=== PATIENT | female | born 1985 | race Caucasian/White ===

== ENCOUNTER 2019-05-02 08:31 | Emergency (ER) | payer OTHER ==
[2019-05-02 08:56] VITALS: BP 132/84
--- NOTE | 2019-05-02 09:30 | ED ---
Skin Complaint - HPI Summary HPI Summary: 33 yr old female with the complaint of bites and itching. Onset over the past week. She has several bug bites. She has been scratching as well, and has some bruising near the itching. She has a follicle left medial thigh as well that is tender with swelling and a bruise around it. She has not had fever. She has not had drainage from the area of the left thigh. She does not know she was bitten. No bleeding from gums, nose, stool, urine. No petechia. - History of Current Complaint Chief Complaint: UCSkin Time Seen by Provider: 05/02/19 08:59 Stated Complaint: SKIN CONCERN Hx Last Menstrual Period: 04/29/19 Pain Intensity: 0 - Allergy/Home Medications Allergies/Adverse Reactions: Allergies Allergy/AdvReac Type Severity Reaction Status Date / Time poison elma extract Allergy Severe severe rash Verified 05/02/19 08:47 Home Medications: Home Medications Hydrocortisone 0.5% CM(NF) [Hydrocortisone 0.5% CREAM(NF)] 1 applic .SEE ORDER PRN 05/02/19 [History] PMH/Surg Hx/FS Hx/Imm Hx Infectious Disease History: No Infectious Disease History: Denies: Traveled Outside the [place] in Last 30 Days - Family History Known Family History: Positive: None - Social History Alcohol Use: Rare Substance Use Type: Reports: None Smoking Status (MU): Never Smoked Tobacco Review of Systems Constitutional: Negative Positive: Other - bites insect and bruising. All Other Systems Reviewed And Are Negative: Yes Physical Exam Triage Information Reviewed: Yes Vital Signs On Initial Exam: Initial Vitals Temp Pulse Resp BP Pulse Ox 98.6 F 66 18 132/84 100 05/02/19 08:49 05/02/19 08:49 05/02/19 08:49 05/02/19 08:49 05/02/19 08:49 Appearance: Positive: Well-Appearing, No Pain Distress Skin: Positive: Warm, Other - the patient has bug bites to right and left arm and the left medial thigh. There is a bruise around the bite left medial thigh. There is tenderness over the follicle area near the bite. Head/Face: Positive: Normal Head/Face Inspection Eyes: Positive: EOMI, HIRA ENT: Positive: Pharynx normal, TMs normal Neck: Positive: Nontender Respiratory/Lung Sounds: Positive: Clear to Auscultation, Breath Sounds Present Cardiovascular: Positive: RRR. Negative: Murmur Abdomen Description: Negative: Distended Musculoskeletal: Positive: Strength/ROM Intact Neurological: Positive: Sensory/Motor Intact, Alert, Oriented to Person Place, Time, CN Intact II-III, Normal Gait, Speech Normal Psychiatric: Positive: Normal - [place] Coma Scale Best Eye Response: 4 - Spontaneous Best Motor Response: 6 - Obeys Commands Best Verbal Response: 5 - Oriented Coma Scale Total: 15 Diagnostics - Vital Signs Vital Signs Temp Pulse Resp BP Pulse Ox 05/02/19 08:49 98.6 F 66 18 132/84 100 - Laboratory Lab Statement: Any lab studies that have been ordered have been reviewed, and results considered in the medical decision making process. Course/Dx - Course Course Of Treatment: 33 yr old with bug bites and likely some folliculitis left thigh from the bite. She does not know what she was bitten by. Will cover with doxy for14 days. - Diagnoses Provider Diagnoses: Bug bite, Folliculitis Discharge - Sign-Out/Discharge Documenting (check all that apply): Patient Departure All imaging exams completed and their final reports reviewed: No Studies - Discharge Plan Condition: Good Disposition: HOME Prescriptions: Doxycycline Monohydrate 100 mg PO BID #28 capsule Patient Education Materials: Insect Bite or Sting (ED), Folliculitis (ED) Referrals: Non Staff,Doctor [Primary Care Provider] - [facility] [Outside] - 2 Days - Billing Disposition and Condition Condition: GOOD Disposition: Home
== END 2019-05-02 09:51 | disposition home or self-care (01) ==
LOC: UCCORT 08:31
DX: W57.XXXA Bitten or stung by nonvenomous insect and other nonvenomous arthropods, initial encounter (principal); Y93.9 Activity, unspecified; Y92.9 Unspecified place or not applicable; S70.362A Insect bite (nonvenomous), left thigh, initial encounter; L73.9 Follicular disorder, unspecified
CPT/HCPCS: 99202; G0463